=== PATIENT | female | born 1960 | race Hispanic/Latino ===

== ENCOUNTER 2018-06-26 06:33 | Observation (INO) | payer OTHER ==
[2018-06-25 12:22] LABS: BASOPHILS % (AUTO) 0.8 % (0.0-5.0); EOSINOPHILS % (AUTO) 2.5 % (0.0-8.0); HEMATOCRIT 40.1 % (36-48); LYMPHOCYTES % (AUTO) 37.3 % (21.0-51.0); MEAN CORPUSCULAR HEMOGLOBIN 31.1 pg (27.0-33.0); MEAN CORPUSCULAR HGB CONC 33.6 g/dL (32.0-36.0); MEAN CORPUSCULAR VOLUME 92.6 fL (79-99); MONOCYTES % (AUTO) 10.8 % (3.0-13.0); NEUTROPHILS % (AUTO) 48.6 % (40.0-77.0); PLATELET COUNT (AUTO) 329 K/uL (130-400); RED BLOOD CELL COUNT(AUTO) 4.33 MIL/uL (4.00-5.50); RED CELL DISTRIBUTION WIDTH 14.3 % (11.0-15.5); WHITE BLOOD COUNT (AUTO) 4.4 K/uL (4.8-10.8)
[2018-06-25 12:34] VITALS: BP 124/66
[2018-06-26] VITALS (24 sets, daily range): BP systolic 100–162; BP diastolic 62–95
[~2018-06-26] VITALS: Ht 160 cm; Wt 60.0 kg
[~2018-06-26 06:33] MED LIST: ALEN35TA31 PO
[2018-06-26] MEDS ORDERED: LACTATED RINGERS 1000ML 1,000 ML IV SCH (08:00)
[2018-06-26] MEDS ORDERED: MIDAZOLAM HCL 1 MG/ML 2ML VIAL ONE (08:58)
[2018-06-26] MEDS ORDERED: ONDANSETRON HCL 4 MG/2 ML VIAL ONE ×2 (08:58→09:03)
[2018-06-26] MEDS ORDERED: PROPOFOL 10 MG/ML 20ML VIAL IV ONE ×2 (09:03→09:27)
[2018-06-26] MEDS ORDERED: LIDOCAINE PF 2% 5ML ABBOJECT ONE (09:03)
[2018-06-26] MEDS ORDERED: ROCURONIUM 10MG/1ML SYR 10 MG/ML ML ONE (09:03)
[2018-06-26] MEDS ORDERED: FENTANYL CITRATE PF 50 MCG/1 ML 2ML VIAL ONE ×2 (09:04→11:35)
[2018-06-26] MEDS ORDERED: DEXAMETHASONE SOD PHOSPHATE 10MG/ML 1ML VIAL ONE (09:20)
[2018-06-26] MEDS ORDERED: CEFAZOLIN SODIUM 1 GM VIAL ONE ×2 (09:27→09:28)
[2018-06-26] MEDS ORDERED: FENTANYL CITRATE PF 50 MCG/1 ML 5ML AMP IV ONE (09:36)
[2018-06-26] MEDS ORDERED: NEOSTIGMINE 5MG/5ML SYR IV ONE (10:18)
[2018-06-26] MEDS ORDERED: GLYCOPYRROLATE 1 MG/5 ML SYRINGE ONE (10:18)
[2018-06-26] MEDS ORDERED: MORPHINE SULFATE 2 MG/ML 1ML SYG ONE ×2 (11:00→11:15)
[2018-06-26] MEDS ORDERED: HYDROMORPHONE 1 MG/1 ML AMP ONE ×2 (11:24→12:11)
[2018-06-26] MEDS ORDERED: KETOROLAC TROMETHAMINE 30MG/ML ONE (11:47)
--- NOTE | 2018-06-26 12:10 | NUR ---
NOTIFIED DR. VÁSQUEZ OF REDDISH URINE OUTPUT AND ONGOING PAIN GOING TO L BUTTOCK. NO NEW ORDERS THIS TIME. Addendum: 06/26/18 at 1229 by OLLIE TRUJILLO RN RN Amended: Links added.
[2018-06-26] MEDS ORDERED: PROMETHAZINE HCL 25 MG/ML 1ML AMPULE IM PRN ×2 (12:45)
[2018-06-26] MEDS ORDERED: BISACODYL 10 MG SUPP.RECT RC PRN (12:45)
[2018-06-26] MEDS ORDERED: ONDANSETRON HCL 4 MG/2 ML VIAL IVP PRN (12:45)
[2018-06-26] MEDS ORDERED: MEPERIDINE-PF 75 MG/ML SYG IM PRN (12:45)
[2018-06-26] MEDS: DEXTROSE 5 %-0.45 % NACL 1,000 ML IV PRN (20:58)
[2018-06-27] VITALS (7 sets, daily range): BP systolic 97–115; BP diastolic 54–75
[2018-06-27] MEDS: DEXTROSE 5 %-0.45 % NACL 1,000 ML IV PRN (04:38)
[2018-06-27 06:24] LABS: HEMATOCRIT 27.2 % (36-48); MEAN CORPUSCULAR HEMOGLOBIN 31.3 pg (27.0-33.0); MEAN CORPUSCULAR HGB CONC 33.8 g/dL (32.0-36.0); MEAN CORPUSCULAR VOLUME 92.5 fL (79-99); PLATELET COUNT (AUTO) 273 K/uL (130-400); RED BLOOD CELL COUNT(AUTO) 2.94 MIL/uL (4.00-5.50); WHITE BLOOD COUNT (AUTO) 8.3 K/uL (4.8-10.8)
[2018-06-27] MEDS: SIMETHICONE 80 MG TAB.CHEW PO PRN ×2 (07:30→19:02)
[2018-06-27] MEDS: DOCUSATE SODIUM 100 MG CAP PO PRN ×2 (07:30→21:38)
[2018-06-27] MEDS: IBUPROFEN 600 MG TABLET PO PRN ×2 (07:31→19:02)
[2018-06-27] MEDS: FERROUS SULFATE 325 MG TABLET.DR PO SCH ×2 (08:38→21:38)
[2018-06-27] MEDS: ACETAMINOPHEN-CODEINE 300/30MG TAB PO PRN ×2 (08:42→21:43)
[2018-06-28 03:51] VITALS: BP 92/57
[2018-06-28 07:24] VITALS: BP 102/63
[2018-06-28] MEDS: FERROUS SULFATE 325 MG TABLET.DR PO SCH (08:59)
[2018-06-28] MEDS: DOCUSATE SODIUM 100 MG CAP PO PRN (08:59)
[2018-06-28] MEDS: ACETAMINOPHEN-CODEINE 300/30MG TAB PO PRN (09:00)
[2018-06-28] MEDS: IBUPROFEN 600 MG TABLET PO PRN (09:00)
[2018-06-28 11:13] VITALS: BP 80/47
--- NOTE | 2018-06-28 13:00 | NUR ---
PATIENT WAS TAKEN VIA W/C TO FAMILY VEHICLE IN STABLE CONDITION. PATIENT HAD SITZ BATH ISSUED AND INSTRUCTED ON USE FOR A&P REPAIR AND PRECUT DRAIN PADS FOR CHANGING DRESSINGS TO SPC. VERBALIZED UNDERSTANDING MEASURING RESIDUAL AND KEEPING SPC AREA CLEAN AND DRY. PATIENT DISCHARGE TO SPOUSE IN STABLE CONDITION.
== END 2018-06-28 13:00 | disposition home or self-care (01) ==
LOC: DAH 06:33 → WSH 06:34
PROVIDERS: ADMIT Obstetrics & Gynecology; ATTEND Obstetrics & Gynecology
DX: N99.3 Prolapse of vaginal vault after hysterectomy (principal); Z90.710 Acquired absence of both cervix and uterus; Z82.49 Family history of ischemic heart disease and other diseases of the circulatory system; Z83.42 Family history of familial hypercholesterolemia
CPT/HCPCS: 36415 ×2; 57260; 57282; 85025; 85027; 86850; 86900; 86901; 88305; 96372; 96374; A4344; A4351; A4510; A4600; A4606; A4930; A6266; G0378 ×54; J0690 ×2; J1100; J1170 ×2; J1885; J2001; J2175; J2250; J2405 ×3; J2550; J2704 ×2; J2710; J3010 ×3; J3490; J7120 ×2; 94640

== ENCOUNTER → 2020-09-15 | Outpatient (CLI) | payer BC ==
[~2020-09-15] MED LIST changes: -ALEN35TA31 PO; +ALEN35TA51 PO
== END | disposition home or self-care (01) ==
LOC: OIH 09:20
PROVIDERS: ATTEND Internal Medicine
DX: M47.816 Spondylosis without myelopathy or radiculopathy, lumbar region (principal)
CPT/HCPCS: 72100